=== PATIENT | male | born 1975 | race Hispanic/Latino ===

== ENCOUNTER 2019-02-25 02:53 | Emergency (ER) | payer BC, SELFPAY ==
[2019-02-25] MEDS ORDERED: FENTANYL CITR 100 MCG/2 ML ONE ×3 (03:10→06:27)
[2019-02-25 03:30] LABS: Absolute Lymphocytes (CBC) 2.3 K/uL (0.7-4.9); Basophils % 0.2 % (0-1.3); Hematocrit 46.4 % (39.6-49.0); Lymphocytes % 9.1 % (15.3-44.8); MPV 7.3 fL (7.6-11.3); RBC Red Blood Cell Count 5.47 M/uL (4.33-5.43)
[2019-02-25 04:01] LABS: BUN Blood Urea Nitrogen 7 mg/dL (7-18); Bicarbonate 26 mmol/L (21-32); Glucose Level 163 mg/dL (74-106); Potassium 3.6 mmol/L (3.5-5.1); Sodium Level 142 mmol/L (136-145)
[2019-02-25 04:25] LABS: Blood Morphology Comment NOT SEEN (NOT SEEN); Platelet Estimate ADEQ
[2019-02-25] MEDS ORDERED: LIDOCAINE 1% MPF 5 ML VIAL ONE (05:50)
[2019-02-25] MEDS ORDERED: NA CHLORIDE 0.9% 1,000 ML ONE (06:27)
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
[2019-02-25] MEDS ORDERED: CEFAZOLIN SODIUM 1 GM/VIAL ONE (06:43)
[2019-02-25] MEDS ORDERED: NA CHLORIDE 0.9% 100 ML IV ONE (06:43)
[2019-02-25] MEDS ORDERED: TETANUS & DIPHTHERIA TOX,ADULT 0.5 ML VIAL ONE (06:51)
[2019-02-25] MEDS ORDERED: ONDANSETRON 4 MG/2 ML VIAL ONE (07:25)
[2019-02-25] MEDS ORDERED: HYDROMORPHONE HCL 1 MG/ML INJ ONE (07:25)
--- NOTE | 2019-02-25 07:33 | EKG ---
Test Date: 2019-02-25 Test Time: 03:04:05 Personal Computer Network Engineer: EDGAR MEASUREMENT RESULTS: Intervals: Rate: 85 IL: 196 QRSD: 76 QT: 348 QTc: 414 Gallagher: P: 48 IL: 196 QRS: -9 T: 28 INTERPRETIVE STATEMENTS: Normal sinus rhythm Normal ECG No previous ECG available for comparison Electronically Signed On 02-25-19 07:32:57 CDT by Jd Boykin
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
--- NOTE | 2019-02-25 09:17 | RAD REPORT ---
EXAM DESCRIPTION: RAD - Tib Fib Left - 02/25/2019 4:33 am CLINICAL HISTORY: Left leg pain, trauma COMPARISON: None. FINDINGS: Oblique comminuted fractures are present through the distal shafts of the left tibia and f ibula. Several fracture fragments are present along the fracture plane. Distal tibia and fibula show 15 degree posterior angulation deformity and there is 1/2 shaft width medial displacement of the dist al tibia and fibula. No ankle abnormality seen. Proximal tibia and fibula to the knee joint are unremarkable. No foreign b jackson in the soft tissues. IMPRESSION: Comminuted fractures of the left tibia and fibula as detailed.
--- NOTE | 2019-02-25 09:19 | RAD REPORT ---
EXAM DESCRIPTION: RAD - Tib Fib Left - 02/25/2019 6:15 am CLINICAL HISTORY: Post reduction tib-fib films COMPARISON: Left tibia fibula same date FINDINGS: Two images were obtained labeled post reduction. Casting material has been placed. Comminu andrew fractures of the distal tibia and fibula shafts on the left are again noted. Fractures have been reduced to near anatomic alignment and position. IMPRESSION: Left tib-fib fractures have been reduced to near anatomic alignment and position.
--- NOTE | 2019-02-25 09:42 | RAD REPORT ---
EXAM DESCRIPTION: CT - Facial Bones W/ Mpr - 02/25/2019 5:04 am CLINICAL HISTORY: DEFORMITY COMPARISON: None. TECHNIQUE: CT MAXILLOFACIAL WITHOUT IV CONTRAST on 02/25/2019 3:15 AM CDT This exam was performed according to our departmental dose-optimization program, which includes autom ated exposure control, adjustment of the mA and/or kV according to patient size and/or use of iterati ve reconstruction technique. FINDINGS: There is deformity of the right zygomatic arch. The paranasal sinuses are clear. Orbits an d globes are unremarkable. Mastoid air cells are clear. Temporomandibular joints are intact. There is right facial soft tissue swelling. IMPRESSION: Right facial soft tissue swelling with an age-indeterminate right zygomatic arch fractur e. Electronically signed by: Tirso Eastman MD 02/25/2019 4:13 AM CDT Due to temporary technical issues with the PACS/Fluency reporting system, reports are being signed by the in house radiologist as a courtesy to ensure prompt reporting. The interpreting radiologist is f ully responsible for the content of the report.
--- NOTE | 2019-02-25 09:51 | RAD REPORT ---
EXAM DESCRIPTION: CT - Head C Spine Cap W [place] - 02/25/2019 5:05 am CLINICAL HISTORY: UNKNOWN TRAUMA COMPARISON: None. TECHNIQUE: CT of the brain and cervical spine without contrast and CT of the chest, abdomen and pelv is with contrast on 02/25/2019 12:00 AM CDT This exam was performed according to our departmental dose-optimization program, which includes autom ated exposure control, adjustment of the mA and/or kV according to patient size and/or use of iterati ve reconstruction technique. FINDINGS: Head: There is no acute hemorrhage, mass effect or midline shift. Balderas-white differentiati on is preserved. There is no hydrocephalus. There is no significant volume loss for age. There is a p osterior left parietal scalp contusion. The calvarium is intact. Orbits and globes are unremarkable. The paranasal sinuses are clear. Mastoid air cells are clear. Cervical spine: There is no acute fracture. Alignment is anatomic. Disc spaces are maintained. Vertebral body heights are preserved. There is right infraorbital soft ti ssue swelling. Chest, abdomen, pelvis: Vascular: Thoracic aorta is normal in course and caliber without aneurysm or dissection. Pulmonary arteries are adequately opacified without acute or chronic filling defects. Abd ominal aorta is normal in course and caliber without aneurysm. Pelvic arteries are patent without ane urysm or occlusion. The heart is normal in size. There is no pericardial effusion. Intrathoracic lymph nodes are not enla rged. There is no pleural effusion, pleural thickening or pneumothorax. Central airways are patent. Lungs a re clear with no consolidation, mass or interstitial lung disease. Abdomen: The liver is normal in appearance. There is no biliary dilatation. Gallbladder is normal in appearance. The pancreas and spleen are normal in appearance. Adrenal glands are normal. Right kidney is unremarkable. There are two tiny lower pole left renal calculi without hydronephrosis. There is no free air. There is no retroperitoneal adenopathy. Pelvis: There is no bowel obstruction. Urinary bladder is unremarkable. There is no free fluid. Appen kostas is normal. Skeleton: There are no acute osseous findings. No suspicious bony lesions. IMPRESSION: No intracranial hemorrhage. No acute fracture. No posttraumatic findings within the ches t, abdomen or pelvis Electronically signed by: Tirso Eastman MD 02/25/2019 4:49 AM CDT Due to temporary technical issues with the PACS/Fluency reporting system, reports are being signed by the in house radiologist as a courtesy to ensure prompt reporting. The interpreting radiologist is f ully responsible for the content of the report.
== END 2019-02-25 07:52 | disposition short-term general hospital (02) ==
LOC: ER 02:53
DX: S02.40EA Zygomatic fracture, right side, initial encounter for closed fracture (principal); S82.252A Displaced comminuted fracture of shaft of left tibia, initial encounter for closed fracture; S82.452A Displaced comminuted fracture of shaft of left fibula, initial encounter for closed fracture; S05.31XA Ocular laceration without prolapse or loss of intraocular tissue, right eye, initial encounter; F10.129 Alcohol abuse with intoxication, unspecified; D72.829 Elevated white blood cell count, unspecified; Y08.89XA Assault by other specified means, initial encounter; Y93.89 Activity, other specified; Y92.89 Other specified places as the place of occurrence of the external cause; Z23 Encounter for immunization
CPT/HCPCS: 36415; 70450; 70486; 71260; 72125; 74177; 76377; 80048; 80320; 80329; 85025; 86850; 86900; 86901; 90471; 90714; 93005; 96374; 96375; 99285; J0690; J1170; J2405; J3010; J7030; Q9967